=== PATIENT | female | born 1965 | race Caucasian/White ===

== ENCOUNTER 2018-01-08 12:09 | Emergency (ER) | payer BC, SELFPAY ==
[2018-01-08 12:19] VITALS: BP 113/72; PULSE 82; RESP 14; TEMP 36.5; O2SAT 98
--- NOTE | 2018-01-08 13:28 | W.ED.GENAD ---
Discharge Plan Disposition Patient Disposition: HOME Condition: Stable Discharge Details Chief Complaint: GenMedical Clinical Impression: Otitis media Primary Care Provider: Janelle,Local ED Provider: Seema Umaña Home Meds and New Rx's Prescriptions: New azithromycin [Zithromax Z-Kei] 250 mg tablet See Label Instructions .ROUTE .COMPLEX Qty: 6 RF: 0 methylprednisolone [Medrol (Kei)] 4 mg tablets,dose pack 4 mg PO DIRECTED Qty: 21 RF: 0 Discharge Instructions Instructions: Otitis Media (ED) Additional Instructions: Alternate Tylenol and Motrin as needed and directed for any pain. Take the antibiotics and steroids until finished. Follow-up with your primary care doctor in 1 week for reevaluation. Return immediately to the emergency department for any worsening or new concerning symptoms. Discharge Data Discharge Date/Time-TO BE ENTERED AT DEPARTURE: 01/08/18 14:16 Discharge Physician: Seema Umaña Medical Decision Making 52-year-old female who presents for right ear pain/bubbling/cracking and sensation of left ear plugging since yesterday. She admits to 2 weeks of vertigo which has since resolved. Patient states she is traveling on a plane in 3 days and wanted her ears evaluated to see if she needs an antibiotic. She denies fever, headache, blurry vision, chest pain or shortness of breath. Vitals within normal limits. Patient afebrile. Patient appears nontoxic and in no acute distress. Left TM appears dull but no erythema or bulging. Right TM obscured by cerumen. Remainder of ENT exam within normal limits. Lungs clear to auscultation. No focal deficits. No signs of mastoiditis. Patient states she is only here for your evaluation of her ears and possibly an antibiotic prescription and has no complaints of dizziness or vertigo and does not want any further workup for that. Will flush the R ear and re-evaluate R TM. 1400 --right TM evaluated and notes erythema and dullness. Will give a prescription for Zithromax and steroids for likely otitis media which may have started viral but as it caused severe vertigo for 2 weeks and now with worsening ear pain, may have turned bacterial. Follow-up with primary care doctor in 1 week for reevaluation and to return to the emergency department any worsening or new concerning symptoms HPI General Mode of arrival: ambulatory. Date/Time Provider Initiated Documentation: 01/08/18 12:22. Limitations to Documentation: no limitations. Information obtained by: patient. HPI Narrative: Patient is a 52-year-old female who presents with right ear pain and bubbling and cracking sensation and left ear plugging since yesterday. Patient states she had 2 weeks of severe vertigo which has since resolved. Patient states she use the Ananya maneuver, chiropractor and craniosacral massage to help with her vertigo. Patient states she is traveling on a plane in 3 days and wanted her ears evaluated first to see if she needs an antibiotic. She states she had been having nausea and vomiting for 5 days but this is now resolved and she is eating and drinking well and she denies fever, visual changes, headache, chest pain, shortness of breath. She denies any recent antibiotics. Past medical history: none Surgical history: Social history: Former alcohol use, denies tobacco or drugs Medications: None Allergies: Penicillin PCP: None Related Data Home Medications Medication Instructions Recorded Confirmed azithromycin [Zithromax Z-Kei] See Label Instructions .ROUTE 01/08/18 .COMPLEX #6 tab methylprednisolone [Medrol (Kei)] 4 mg PO DIRECTED #21 dose pk 01/08/18 Previous Rx's Medication Instructions Recorded azithromycin [Zithromax Z-Kei] See Label Instructions .ROUTE 01/08/18 .COMPLEX #6 tab methylprednisolone [Medrol (Kei)] 4 mg PO DIRECTED #21 dose pk 01/08/18 Allergies Allergy/AdvReac Type Severity Reaction Status Date / Time Penicillins Allergy Unverified 01/08/18 12:22 General Stated Complaint: GenMedical SCHUYLER: 4 Review of Systems Review of Systems All systems reviewed & are unremarkable except as noted in HPI and below Constitutional Reports as per HPI, Denies chills and Denies fever(s) Eyes Denies blurry vision ENT Denies dizziness, Reports otalgia (fullness in ears b/l), Denies sore throat and Denies throat swelling Cardiovascular Denies chest pain and Denies dyspnea Respiratory Denies dyspnea Gastrointestinal Denies abdominal pain, Denies diarrhea and Denies vomiting Genitourinary Denies hematuria and Denies dysuria Musculoskeletal Denies back pain and Denies numbness Integumentary/Breasts Denies lesions and Denies rash Neurologic Denies dizziness and Denies numbness Allergic/Immunologic Denies throat swelling [facility] Social History Smoking/Tobacco Use Status: Never Exam Const General: cooperative and healthy appearing Orientation: alert and awake HENMT Head: normal to inspection Ears: hearing grossly normal bilaterally, external ears normal, TM abnormal (Left TM dull. No effusion, erythema or bulging noted) and unable to visualize TM on the right General nose exam: external nose normal Face and sinus: normal facial exam Mouth: oral mucosae normal Teeth and gingiva: dentition normal Throat: posterior oropharynx normal Eyes General: appearance normal, both eyes and all related structures Eyelids: eyelids normal Pupils: PERRL EOM: EOM intact bilaterally Neck Neck: normal visual inspection Lymphatic: no lymphadenopathy noted Chest Chest: normal inspection of the chest Resp Effort & Inspection: normal respiratory effort and able to speak in complete sentences Auscultation: clear to auscultation bilaterally Cardio Rate: regular rate Rhythm: regular rhythm GI Inspection: normal to inspection Skin General skin exam: no rashes or lesions noted Neuro General: alert, awake and oriented x3 Cranial Nerves: CN's II-XI intact bilaterally Cognition: normal cognition Speech: speech normal Gait: normal gait Motor: muscle tone normal throughout and strength 5/5 throughout Sensory Exam: no sensory deficits noted Extrem General: normal to inspection, full ROM and normal capillary refill Psych Appearance: grossly normal Mental Status: mental status grossly normal Speech and Movement: speech and movement normal Affect: normal affect Thought Process: normal Course Vital Signs Temperature 97.7 F 01/08/18 12:19 Pulse 82 01/08/18 12:19 Respiratory Rate 14 01/08/18 12:19 Blood Pressure 113/72 01/08/18 12:19 Pulse Oximetry 98 01/08/18 12:19 Temperature 97.7 F 01/08/18 12:19 Temperature Source Temporal Artery Scan 01/08/18 12:19 Pulse 82 01/08/18 12:19 Respiratory Rate 14 01/08/18 12:19 Respiratory Effort 01/08/18 12:22 Blood Pressure 113/72 01/08/18 12:19 Blood Pressure Position Sitting 01/08/18 12:19 Pulse Oximetry 98 01/08/18 12:19 Oxygen Delivery Method Room Air 01/08/18 12:19 Oxygen Flow Rate 0 01/08/18 12:19 Comment 01/08/18 12:19
--- NOTE | 2018-01-08 13:31 | ED.GENADUL_ITS ---
Discharge Plan Disposition Patient Disposition: HOME Condition: Stable Discharge Details Chief Complaint: GenMedical Clinical Impression: Otitis media Primary Care Provider: Janelle,Local ED Provider: Seema Umaña Home Meds and New Rx's Prescriptions: New azithromycin [Zithromax Z-Kei] 250 mg tablet See Label Instructions .ROUTE .COMPLEX Qty: 6 RF: 0 methylprednisolone [Medrol (Kei)] 4 mg tablets,dose pack 4 mg PO DIRECTED Qty: 21 RF: 0 Discharge Instructions Instructions: Otitis Media (ED) Additional Instructions: Alternate Tylenol and Motrin as needed and directed for any pain. Take the antibiotics and steroids until finished. Follow-up with your primary care doctor in 1 week for reevaluation. Return immediately to the emergency department for any worsening or new concerning symptoms. Discharge Data Discharge Date/Time-TO BE ENTERED AT DEPARTURE: 01/08/18 14:16 Discharge Physician: Seema Umaña Medical Decision Making 52-year-old female who presents for right ear pain/bubbling/cracking and sensation of left ear plugging since yesterday. She admits to 2 weeks of vertigo which has since resolved. Patient states she is traveling on a plane in 3 days and wanted her ears evaluated to see if she needs an antibiotic. She denies fever, headache, blurry vision, chest pain or shortness of breath. Vitals within normal limits. Patient afebrile. Patient appears nontoxic and in no acute distress. Left TM appears dull but no erythema or bulging. Right TM obscured by cerumen. Remainder of ENT exam within normal limits. Lungs clear to auscultation. No focal deficits. No signs of mastoiditis. Patient states she is only here for your evaluation of her ears and possibly an antibiotic prescription and has no complaints of dizziness or vertigo and does not want any further workup for that. Will flush the R ear and re-evaluate R TM. 1400 --right TM evaluated and notes erythema and dullness. Will give a prescription for Zithromax and steroids for likely otitis media which may have started viral but as it caused severe vertigo for 2 weeks and now with worsening ear pain, may have turned bacterial. Follow-up with primary care doctor in 1 week for reevaluation and to return to the emergency department any worsening or new concerning symptoms HPI General Mode of arrival: ambulatory . Date/Time Provider Initiated Documentation: 01/08/18 12:22 . Limitations to Documentation: no limitations . Information obtained by: patient . HPI Narrative: Patient is a 52-year-old female who presents with right ear pain and bubbling and cracking sensation and left ear plugging since yesterday. Patient states she had 2 weeks of severe vertigo which has since resolved. Patient states she use the Ananya maneuver, chiropractor and craniosacral massage to help with her vertigo. Patient states she is traveling on a plane in 3 days and wanted her ears evaluated first to see if she needs an antibiotic. She states she had been having nausea and vomiting for 5 days but this is now resolved and she is eating and drinking well and she denies fever, visual changes, headache, chest pain, shortness of breath. She denies any recent antibiotics. Past medical history: none Surgical history: Social history: Former alcohol use, denies tobacco or drugs Medications: None Allergies: Penicillin PCP: None Related Data Home Medications Medication Instructions Recorded Confirmed azithromycin [Zithromax Z-Kei] See Label Instructions .ROUTE 01/08/18 .COMPLEX #6 tab methylprednisolone [Medrol (Kei)] 4 mg PO DIRECTED #21 dose pk 01/08/18 Previous Rx's Medication Instructions Recorded azithromycin [Zithromax Z-Kei] See Label Instructions .ROUTE 01/08/18 .COMPLEX #6 tab methylprednisolone [Medrol (Kei)] 4 mg PO DIRECTED #21 dose pk 01/08/18 Allergies Allergy/AdvReac Type Severity Reaction Status Date / Time Penicillins Allergy Unverified 01/08/18 12:22 General Stated Complaint: GenMedical SCHUYLER: 4 Review of Systems Review of Systems All systems reviewed & are unremarkable except as noted in HPI and below Constitutional Reports as per HPI, Denies chills and Denies fever(s) Eyes Denies blurry vision ENT Denies dizziness, Reports otalgia (fullness in ears b/l), Denies sore throat and Denies throat swelling Cardiovascular Denies chest pain and Denies dyspnea Respiratory Denies dyspnea Gastrointestinal Denies abdominal pain, Denies diarrhea and Denies vomiting Genitourinary Denies hematuria and Denies dysuria Musculoskeletal Denies back pain and Denies numbness Integumentary/Breasts Denies lesions and Denies rash Neurologic Denies dizziness and Denies numbness Allergic/Immunologic Denies throat swelling [facility] Social History Smoking/Tobacco Use Status: Never Exam Const General: cooperative and healthy appearing Orientation: alert and awake HENMT Head: normal to inspection Ears: hearing grossly normal bilaterally, external ears normal, TM abnormal ( Left TM dull. No effusion, erythema or bulging noted) and unable to visualize TM on the right General nose exam: external nose normal Face and sinus: normal facial exam Mouth: oral mucosae normal Teeth and gingiva: dentition normal Throat: posterior oropharynx normal Eyes General: appearance normal, both eyes and all related structures Eyelids: eyelids normal Pupils: PERRL EOM: EOM intact bilaterally Neck Neck: normal visual inspection Lymphatic: no lymphadenopathy noted Chest Chest: normal inspection of the chest Resp Effort & Inspection: normal respiratory effort and able to speak in complete sentences Auscultation: clear to auscultation bilaterally Cardio Rate: regular rate Rhythm: regular rhythm GI Inspection: normal to inspection Skin General skin exam: no rashes or lesions noted Neuro General: alert, awake and oriented x3 Cranial Nerves: CN's II-XI intact bilaterally Cognition: normal cognition Speech: speech normal Gait: normal gait Motor: muscle tone normal throughout and strength 5/5 throughout Sensory Exam: no sensory deficits noted Extrem General: normal to inspection, full ROM and normal capillary refill Psych Appearance: grossly normal Mental Status: mental status grossly normal Speech and Movement: speech and movement normal Affect: normal affect Thought Process: normal Course Vital Signs Temperature 97.7 F 01/08/18 12:19 Pulse 82 01/08/18 12:19 Respiratory Rate 14 01/08/18 12:19 Blood Pressure 113/72 01/08/18 12:19 Pulse Oximetry 98 01/08/18 12:19 Temperature 97.7 F 01/08/18 12:19 Temperature Source Temporal Artery Scan 01/08/18 12:19 Pulse 82 01/08/18 12:19 Respiratory Rate 14 01/08/18 12:19 Respiratory Effort 01/08/18 12:22 Blood Pressure 113/72 01/08/18 12:19 Blood Pressure Position Sitting 01/08/18 12:19 Pulse Oximetry 98 01/08/18 12:19 Oxygen Delivery Method Room Air 01/08/18 12:19 Oxygen Flow Rate 0 01/08/18 12:19 Comment 01/08/18 12:19
== END 2018-01-08 14:16 | disposition home or self-care (01) ==
LOC: ER 14:23
PROVIDERS: Emergency Provider Physician Assistant
DX: R42 Dizziness and giddiness (principal); H61.21 Impacted cerumen, right ear; H66.91 Otitis media, unspecified, right ear; R11.2 Nausea with vomiting, unspecified
CPT/HCPCS: 69209; 99283